=== PATIENT | female | born 1990 | race Caucasian/White ===

== ENCOUNTER 2025-09-12 12:57 | Outpatient (AMB) | payer OTHER, SELFPAY ==
--- NOTE | 2025-09-12 13:10 | MHC.PC.OV ---
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 Transferring care from [facility]. Medical records have been requested and have not received. Director Targeted Marketing Required: No Utilities Service Investigator: Not Required per policy Accompanied by: Self / Same As Patient Allergies No Known Allergies Allergy (Verified 09/12/25 13:17) Medication List - Last Reconciled 09/12/25 by Mauricio Kumar MD No Known Home Meds Tobacco use date assessed: 09/12/25 Dental Screening Dental Screen Date: 09/12/25 Did you have a dental visit in the last 12 months?: Yes Did you have a dental problem in the last 6 months where you did not have access to dental care?: No Was dental information given to patient?: Patient has dentist HPI HPI Comments History of Present Illness Details The patient is a 35-year-old female presenting to establish primary care. The patient has a history of anorexia and is considering an outpatient eating disorder program. She requires a medical assessment form to be completed for intake and has recently started with a therapist. Past medical history is notable for a rash over the summer, which was diagnosed at an urgent care as ringworm and resolved with a cream. The patient had an IUD placed in 2022 but does not currently have an [employer] GRADER. She declines a referral as she is moving back to [place] soon. The patient is a former smoker, having smoked through most of her 20s and quit about a year and a half ago. She denies excessive alcohol use. Family history is significant for pancreatic cancer in two of her father's siblings. She denies any known family history of colon cancer. The patient is up-to-date on her tetanus immunization, received in June or July of this year. She received COVID-19 vaccines in 2021 but not the most recent one. She has never had a flu vaccine and declines it today but may get it at a pharmacy. 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 1. Little interest or pleasure in doing things: not at all 2. Feeling down, depressed, or hopeless: not at all 3. Trouble falling or staying asleep, or sleeping too much: not at all 4. Feeling tired or having little energy: not at all 5. Poor appetite or overeating: not at all 6. Feeling bad about yourself - or that you are a failure or have let yourself or your family down: not at all 7. Trouble concentrating on things, such as reading the newspaper or watching television: not at all 8. Moving or speaking so slowly that other people could have noticed. Or the opposite - being so fidgety or restless that you have been moving around a lot more than usual: not at all 9. Thoughts that you would be better off or of hurting yourself in some way: not at all Total score: 0 Depression Screening Interpretation: Negative Depression Screening Done: Yes Source: Developed by Drs. Walter Desir, Carla Doe, Artis Wild and colleagues, with an educational domingo from [employer]. Thrive Questionnaire Date Thrive assessed: 09/12/25 I am a: Patient What is your living situation today?: I have a steady place to live Within the past 12 months, did the food you bought not last and you didn't have the money to get more?: Never true Within the past 12 months, did you worry whether your food would run out before you got money to buy more?: Never true Do you have trouble paying for medicines?: No Do you have trouble getting transportation to medical appointments?: No Do you have trouble paying your heating and electricity bill?: No Do you have trouble taking care of your child, family member or friend?: No Do you have trouble with day-to-day activities such as bathing, preparing meals, shopping, managing finances, etc.?: No Are you currently unemployed and looking for a job?: No Are you interested in more education?: No Please select the resources that you would like help with: None Currently or been in a relationship where the following occur: No concerns reported THRIVE Score: 0 AUDIT C Alcohol Use Questionnaire (AUDIT-C) 1. How often do you have a drink containing alcohol?: 4 or more times a week 2. How many drinks containing alcohol do you have on a typical day when you are drinking?: 1 or 2 3. How often do you have six or more drinks on one occasion?: Never Total Score: 4 VIKY-7 AMB Questionnaire VIKY-7 Date VIKY - 7 assessed: 09/12/25 Feeling nervous, anxious, or on edge: 0 = Not at all Not being able to stop or control worryin = Not at all Worrying too much about different things: 0 = Not at all Trouble relaxin = Not at all Being so restless that it is hard to sit still: 0 = Not at all Becoming easily annoyed or irritable: 0 = Not at all Feeling afraid as if something awful might happen: 0 = Not at all Total VIKY-7 score (0-4 normal; 5-9 mild; 10-14 moderate; 15-21 severe): 0 Source: Developed by Drs. Walter Desir, Carla Doe, Artis Wild and colleagues, with an educational domingo from [employer]. Review of Systems Const Details: Positives besides what was mentioned in HPI are in BOLD Constitutional: No Weight Change, No Fever, No Chills, No Night Sweats, No Fatigue, No Malaise ENT/Mouth: No Hearing Changes, No Ear Pain, No Nasal Congestion, No Sinus Pain, No Hoarseness, No sore throat, No Rhinorrhea, No Swallowing Difficulty Eyes: No Eye Pain, No Swelling, No Redness, No Foreign Body, No Discharge, No Vision Changes Cardiovascular: No Chest Pain, No SOB, No PND, No Dyspnea on Exertion, No Orthopnea, No Claudication, No Edema, No Palpitations Respiratory: No Cough, No Sputum, No Wheezing, No Smoke Exposure, No Dyspnea Gastrointestinal: No Nausea, No Vomiting, No Diarrhea, No Constipation, No Pain, No Heartburn, No Anorexia, No Dysphagia, No Hematochezia, No Melena, No Flatulence, No Jaundice Genitourinary: No Dysmenorrhea, No DUB, No Dyspareunia, No Dysuria, No Urinary Frequency, No Hematuria, No Urinary Incontinence, No Urgency, No Flank Pain, No Urinary Flow Changes, No Hesitancy Musculoskeletal: No Arthralgias, No Myalgias, No Joint Swelling, No Joint Stiffness, No Back Pain, No Neck Pain, No Injury History Skin: No Skin Lesions, No Pruritis, No Hair Changes, No Breast/Skin Changes, No Nipple Discharge Neuro: No Weakness, No Numbness, No Paresthesias, No Loss of Consciousness, No Syncope, No Dizziness, No Headache, No Coordination Changes, No Recent Falls Psych: No Anxiety/Panic, No Depression, No Insomnia, No Personality Changes, No Delusions, No Rumination, No SI/HI/AH/VH, No Social Issues, No Memory Changes, No Violence/Abuse Hx., No Eating Concerns Heme/Lymph: No Bruising, No Bleeding, No Transfusions History, No Lymphadenopathy Endocrine: No Polyuria, No Polydipsia, No Temperature Intolerance Physical exam (Primary Care) Vital Signs: Last Vital Signs Temp 97.1 F 09/12/25 13:12 Pulse 95 09/12/25 13:12 BP 130/70 09/12/25 13:12 Pulse Ox 97 09/12/25 13:12 Oxygen Delivery Method Room Air 09/12/25 13:12 BMI result Body Mass Index 17.5 Tobacco/Smoking Status: Tobacco use Status Tobacco use date assessed 09/12/25 09/12/25 13:21 Patient Tobacco Use Status Former Tobacco user (2023) 09/12/25 13:21 Tobacco use type Cigarette 09/12/25 13:21 e-Cigarette/Vaping Use Currently Using 09/12/25 13:21 PHQ-9: PHQ-9 Score PHQ-9: Total score 0 09/12/25 13:21 Depression Screening Interpretation: Negative Thrive Assessment: Date of Thrive Assessment Date Thrive assessed 09/12/25 09/12/25 13:21 Currently or been in a relationship where the following occur: No concerns reported Const Other: Pertinent findings are in BOLD GENERAL APPEARANCE NAD, activity normal for age, well developed/ well nourished, no cyanosis, pallor, or diaphoresis. EYES lids/conjunctiva normal. EARS/NOSE/THROAT Mucous membranes moist, nares normal, lips/teeth normal uvula midline without oral pharyngeal erythema, exudate or swelling TMs normal bilaterally. No lymphangitis/lymphedema. HEAD/NECK normocephalic atraumatic, no facial trauma, neck is supple. RESPIRATORY respiratory effort normal, speaks in full sentences, no tripod position, no accessory muscle use. Lungs clear to auscultation without rhonchi, wheezes, rales CARDIAC Regular rate and rhythm, no edema. ABDOMINAL Soft, ND/NT. No evidence of fluid wave. No pulsatile masses on exam, rebound tenderness, Ramirez sign or pain over Mcburney's point. MUSCLES/EXTREMITIES No abnormal range of motion, no swelling. SKIN Warm, pink and dry. No rashes, dermatoses, petechiae or lesions. NEUROLOGICAL Speech is clear and appropriate. Normal level of consciousness. Gait and coordination are normal. 5/5 strength in all extremities. PSYCH Normal mood and affect. Judgement/competence is appropriate Coding Level of Care Code New Pt Level 4 (11300) New Pt Prev Care 18-39yr(96401 Diagnoses Healthcare maintenance Z00.00 Anorexia R63.0 Time Spent (min) 30 Assessment & Plan Assessment & Plan (1) Healthcare maintenance: Code(s): Z00.00 - Encounter for general adult medical examination without abnormal findings Category: Medical Plan: CBC, CMP, Lipid panel, A1C, TSH w T4, vit D. Ordered today. Shingles 2 doses when >50 yo. At 50. COVID: two doses. Completed. Tdap: Last shot in June 2025. Pneumococcal: >50 yo. 18-49 with CKD, lung disease, weakened immune system, Heart disease, DM, cochlear implant. Flu vaccine: Retail pharmacy. Colonoscopy: 45-75. At 45. AAA: 65 -75. At 65. CT lun - 80. At 50. HPV: Will follow in [place]. HIV: Ordered. HCV: Ordered. Dexa: At 65. Mammogram: At 40. (2) Anorexia: Code(s): R63.0 - Anorexia Category: Medical Plan: - Will complete a medical assessment form for a potential outpatient eating disorder program once the patient provides it. - Noted that the patient is engaged in therapy, which is encouraged. Plan I introduced myself as the patient's new primary care physician as she is establishing care. We discussed her history of anorexia, and I agreed to fill out a medical assessment form for an outpatient program once she provides it. I informed the patient that I would be ordering a comprehensive set of baseline labs to assess her overall health, including screenings for Hepatitis C and HIV, and she consented. I advised her to have the blood drawn at the [facility] lab and that fasting was not necessary. We reviewed her vaccination history; her tetanus is up to date, and I recommended the influenza vaccine, which she can get at a pharmacy. I also provided anticipatory guidance regarding colon cancer screening at age 45. Given her impending move, we agreed that a referral to a local [employer] GR[employer]ER was not necessary at this time. I instructed her on how to set up the patient portal for communication and access to lab results. Orders: Orders Comprehensive Met. Panel Today Z00.00 - Encounter for general adult medical examination without abnormal findings Hemoglobin A1c Today Z00.00 - Encounter for general adult medical examination without abnormal findings Hepatitis C Antibody Reflex Today Z00.00 - Encounter for general adult medical examination without abnormal findings Vitamin D 25-OH Total Today Z00.00 - Encounter for general adult medical examination without abnormal findings UA and rflx microscopic Today Z00.00 - Encounter for general adult medical examination without abnormal findings Complete Blood Count no Diff Today Z00.00 - Encounter for general adult medical examination without abnormal findings HIV Ab/Ag Today Z00.00 - Encounter for general adult medical examination without abnormal findings IRON PROFILE Today Z00.00 - Encounter for general adult medical examination without abnormal findings Lipid Panel Today Z00.00 - Encounter for general adult medical examination without abnormal findings Vitamin B12 and Folate Today D64.9 - Anemia, unspecified, Z00.00 - Encounter for general adult medical examination without abnormal findings TSH reflex Free T4 Today Z00.00 - Encounter for general adult medical examination without abnormal findings
[2025-09-12 13:12] VITALS: BP 130/70; PULSE 95; TEMP 36.2; O2SAT 97; BMI 17.5
--- OUTSIDE RECORDS SUMMARY | 2025-09-12 15:49 | XMS_ITS | Clinical Summary ---
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 Not on collette e 05/29/2025 Are you concerned about learning? Not on file 05/29/2025 No 05/29/2025 No 05/29/2025 Digital Access Answer Date Recorded No 05/29/2025 No 05/29/2025 Reliable internet access at home? Not on file 05/29/2025 Device with a working camera? Not on file Comments Unknown Sex and Gender Information Value Date Recorded Sex Assigned at Not on file Legal Sex Female 8:59 PM EDT Gender Identity Not on file Sexual Orientation Not on file Last Filed Vital Signs Vital Sign Reading Time Taken Comments Blood Pressure 118/76 10/09/2014 9:50 AM EST Pulse 114 10/09/2014 9:50 AM EST Temperature - - Respiratory Rate - - Oxygen Saturation - - Inhaled Oxygen Concentration - - Weight 60.3 kg (133 lb) 10/09/2014 9:50 AM EST Height 163.6 cm (5' 4.4 ) 10/09/2014 9:50 AM EST Body Mass Index 22.55 10/09/2014 9:50 AM EST Plan of Treatment Upcoming Encounters Date Type Department Care Team (Late st Contact Info) Description 11/08/2025 2:00 PM EST Office Visit [facility] [address] [place] [address] Kris Tobar, DO [address] [facility], [address] [place] [address] [email or web address] Health Maintenance Due Date Last Done Comments DEPRESSION SCREENING 2004 SMOKING Hx and SMOKELESS TOBACCO SCREENING 2005 HEPATITIS C SCREENING 2010 HIV ONE-TIME SCREENING (18-6 5 YEARS) 2010 PAP SMEAR 2013 Adult Td,Tdap Booster 02/18/2019 02/18/2009 , 04/22/2004 INFLUENZA VACCINE (#1) 2025 COVID-19 VACCINE (2024-2 6 season) 2025 HIB VACCINES Completed 10/19/1993, 01/27/1993, 1992 MENINGOCOCCAL VACCINES (ACWY) Completed 02/18/2009 HEPATITIS A VACCINES Aged Out No long er eligible based on patient's age to complete this topic MENINGOCOCCAL VACCINES (B) Aged Out N o longer eligible based on patient's age to complete this topic PNEUMOCOCCAL VACCINES (0-49 years) Aged Out No longer eligible b ased on patient's age to complete this topic Medical Devices Not on file Insurance [facility] NON NSPG PCP [facility] [employer] CONNECTORCARE [facility] NON NSPG PCP [employer] CONNECTORCARE [employer] [place] NON [place] PCP SILVER CLARITY CONNECTORCARE [facility] NON NSPG PCP SILVER CLARITY CONNECTORCARE [employer] NON NSPG PCP SILVER CLARITY CONNECTORCARE [facility] NON NSPG [facility]CP [facility] Care Teams Telegraph Printer Mechanic Relationship Specialty Start Date End Date Lotus Sigala MD [address] [place] [id number] PCP - General 05/29/25 Additional Source Comments The information contained in this document represents components of the legal health record. It is not the complete legal health record.Located Within [facility]
== END 2025-09-12 13:39 | disposition home or self-care (01) ==
LOC: HO.HMCH 12:57
PROVIDERS: PCP Internal Medicine; Visit Provider Internal Medicine
DX: Z00.00 Encounter for general adult medical examination without abnormal findings (principal); R63.0 Anorexia

== ENCOUNTER 2025-09-12 12:57 | Outpatient (REF) | payer OTHER, SELFPAY ==
[2025-09-12 14:16] LABS: Hematocrit 42.8 % (37.0-47.0); Hemoglobin 13.7 g/dl (12.0-16.0); Mean Corpuscular HGB Conc 32.0 g/dl (31.0-35.0); Mean Corpuscular Hemoglobin 32.6 pg (27.0-33.0); Mean Corpuscular Volume 101.9 fL (80.0-98.0); NRBC Abs Auto 0.000 X10*3/uL (0.0-0.012); NRBC Pct Auto 0.0 /100WBC (0.0-0.2); Platelet Count 339 X10*3/uL (160-400); Red Blood Count 4.20 X10*6/uL (4.20-5.50); White Blood Count 7.1 X10*3/uL (4.8-10.8)
[2025-09-12 14:49] LABS: Appearance Urine Clear; Glucose Urine UA Negative (Negative); PH 8.5 (5.0-9.0); Specific Gravity - Urine 1.010 (1.005-1.025); UMIC TRIGGER UA YES
[2025-09-12 14:50] LABS: Alanine Aminotransferase 61 U/L (0-31); Albumin Level 5.5 g/dL (3.5-5.0); Alkaline Phosphatase 66 U/L (39-117); Anion Gap 13 (12-20); Aspartate Amino Transferase 51 U/L (5-31); Blood Urea Nitrogen 7 mg/dL (9-16); Calcium 10.4 mg/dL (8.4-10.2); Carbon Dioxide 30 mmol/L (22-29); Chloride 103 mmol/L (96-108); Cholesterol 204 mg/dL (<200); Estimated Glomerular Filt Rate > 60; HDL Cholesterol 80 mg/dL (>40); Iron 115 mcg/dL (30-160); Percent Iron Saturation 30 % (15-50); Potassium 3.8 mmol/L (3.3-5.1); Sodium 142 mmol/L (135-145); Total Iron Binding Capacity 379 mcg/dL (228-428); Total Protein 7.8 g/dL (6.5-8.0); Triglycerides 97 mg/dL (<150); Unsaturated Iron Binding 264 ug/dL
[2025-09-12 15:21] LABS: Folate 8.5 ng/mL (> or = 4.0); Vitamin B12 218 pg/mL (200-900)
[2025-09-13 05:06] LABS: HIV Num 1 0.06 S/CO (0.00-0.99); ~HepC Num1 0.10 S/CO (0.00-0.79); ~Hepatitis C Antibody Nonreactive (Nonreactive)
== END 2025-09-12 12:58 | disposition home or self-care (01) ==
LOC: HO.LAB 12:57
PROVIDERS: PCP Internal Medicine; Visit Provider Internal Medicine
DX: Z00.00 Encounter for general adult medical examination without abnormal findings (principal); D64.9 Anemia, unspecified; R63.0 Anorexia
CPT/HCPCS: 36415; 80053; 80061; 81001; 82306; 82607; 82746; 83036; 83540; 84443; 85027; 86803; 87389

== ENCOUNTER 2025-10-23 16:27 | Outpatient (AMB) | payer OTHER, SELFPAY ==
[2025-10-23 16:33] VITALS: BP 126/80; PULSE 81; RESP 18; O2SAT 97; BMI 19.8
--- NOTE | 2025-10-23 16:33 | A.OFFPC_ITS ---
Vital Signs 10/23/25 16:33 Height 5 ft 4.76 in Weight 118 lb BMI 19.8 BP 126/80 Blood Pressure Location Lt brachial Position Sitting Respiration 18 Pulse 81 Pulse Source Pulse Oximeter Temp Source Temporal Artery Scan Pulse Oximetry (%) 97 Oxygen Delivery Method Room Air Intake Visit Reasons: follow up labs Accompanied by: Self / Same As Patient Allergies No Known Allergies Allergy (Verified 10/23/25 16:34) Medication List - Last Reconciled 10/23/25 by Mauricio Kumar MD folic acid 1 mg PO DAILY mecobalamin (vitamin B12) 1,000 mcg PO DAILY Tobacco use date assessed: 10/23/25 Dental Screening Dental Screen Date: 10/23/25 Did you have a dental visit in the last 12 months?: Yes Did you have a dental problem in the last 6 months where you did not have access to dental care?: No Was dental information given to patient?: Patient has dentist HPI HPI Comments History of Present Illness Details The patient is a 35 year old female with PMH of anorexia, elevated liver enzymes presenting for a follow-up on abnormal lab results showing elevated liver enzymes. She has a history of not eating much, but reports she has been eating more recently and has gained 14 pounds, from 104 pounds to her current 118 pounds. Her lab results showed elevated liver enzymes (AST and ALT) and an elevated MCV of 102, which may suggest a vitamin B12 or folic acid deficiency. She reports drinking approximately two ciders per day, which is about 14 drinks per week, and states this is consistent without days of heavier drinking. She has been taking a prescribed vitamin B12 supplement. The patient is moving to [place] on November 14 and will establish care with a new PCP there. She was unable to schedule an appointment with a specialist before her move due to a lack of availability. 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 Cognitive needs: No Hearing needs: No Vision needs: Yes (Glasses/Contacts) Questionnaire Thrive Questionnaire Date Thrive assessed: 10/23/25 I am a: Patient What is your living situation today?: I have a steady place to live Within the past 12 months, did the food you bought not last and you didn't have the money to get more?: Never true Within the past 12 months, did you worry whether your food would run out before you got money to buy more?: Never true Do you have trouble paying for medicines?: No Do you have trouble getting transportation to medical appointments?: No Do you have trouble paying your heating and electricity bill?: No Do you have trouble taking care of your child, family member or friend?: No Do you have trouble with day-to-day activities such as bathing, preparing meals, shopping, managing finances, etc.?: No Are you currently unemployed and looking for a job?: No Are you interested in more education?: No Please select the resources that you would like help with: None Currently or been in a relationship where the following occur: No concerns reported THRIVE Score: 0 VIKY-7 AMB Questionnaire VIKY-7 Date VIKY - 7 assessed: 09/12/25 Source: Developed by Drs. Walter Desir, Carla Doe, Artis Wild and colleagues, with an educational domingo from [employer]. Review of Systems Const Details: As per HPI. Physical exam (Primary Care) Vital Signs: Last Vital Signs Pulse 81 10/23/25 16:33 Resp 18 10/23/25 16:33 BP 126/80 10/23/25 16:33 Pulse Ox 97 10/23/25 16:33 Oxygen Delivery Method Room Air 10/23/25 16:33 BMI result Body Mass Index 19.8 Tobacco/Smoking Status: Tobacco use Status Tobacco use date assessed 10/23/25 10/23/25 16:35 Patient Tobacco Use Status Former Tobacco user 10/23/25 16:35 Tobacco use type Cigarette 10/23/25 16:35 e-Cigarette/Vaping Use Currently Using 10/23/25 16:35 Thrive Assessment: Date of Thrive Assessment Date Thrive assessed 10/23/25 10/23/25 16:35 Currently or been in a relationship where the following occur: No concerns reported Const Other: Pertinent findings are in BOLD GENERAL APPEARANCE NAD, activity normal for age, well developed/ well nourished, no cyanosis, pallor, or diaphoresis. EYES lids/conjunctiva normal. EARS/NOSE/THROAT Mucous membranes moist, nares normal, lips/teeth normal uvula midline without oral pharyngeal erythema, exudate or swelling TMs normal bilaterally. No lymphangitis/lymphedema. HEAD/NECK normocephalic atraumatic, no facial trauma, neck is supple. RESPIRATORY respiratory effort normal, speaks in full sentences, no tripod position, no accessory muscle use. Lungs clear to auscultation without rhonchi, wheezes, rales CARDIAC Regular rate and rhythm, no edema. ABDOMINAL Soft, ND/NT. No evidence of fluid wave. No pulsatile masses on exam, rebound tenderness, Ramirez sign or pain over Mcburney's point. MUSCLES/EXTREMITIES No abnormal range of motion, no swelling. SKIN Warm, pink and dry. No rashes, dermatoses, petechiae or lesions. NEUROLOGICAL Speech is clear and appropriate. Normal level of consciousness. Gait and coordination are normal. 5/5 strength in all extremities. PSYCH Normal mood and affect. Judgement/competence is appropriate Coding Level of Care Code Tele Est Pt Level 3 (92743) Diagnoses Elevated liver enzymes R74.8 Macrocytosis D75.89 Time Spent (min) 20 Assessment & Plan Assessment & Plan (1) Elevated liver enzymes: Code(s): R74.8 - Abnormal levels of other serum enzymes Category: Medical Plan: - The elevated liver enzymes (AST and ALT) are likely multifactorial, potentially related to daily alcohol consumption, nutritional status, and low body weight. - Recommended reducing alcohol intake significantly to no more than one drink three times per week, or abstaining completely, to see if liver enzymes normalize. - A specialist referral is not immediately necessary. - The patient will follow up with a new primary care provider in [place] after her move to repeat labs and monitor her liver function. (2) Macrocytosis: Code(s): D75.89 - Other specified diseases of blood and blood-forming organs Category: Medical Plan: - The patient has an elevated MCV of 102, which suggests a possible vitamin B12 or folic acid deficiency, potentially related to alcohol consumption and diet. - The patient reports she is already taking a prescribed vitamin B12 supplement. - Folic acid will be prescribed to address potential deficiency. Plan I discussed the patient's recent lab results, which showed elevated liver enzymes (AST/ALT) and an elevated MCV of 102. I explained that these findings could be related to her daily alcohol consumption, nutritional status, and low body weight. I recommended she reduce her alcohol intake to no more than one drink three times per week, or ideally, to stop drinking altogether. I prescribed folic acid due to the high MCV and noted that she is already taking her prescribed vitamin B12. I acknowledged her recent weight gain of 14 pounds as a positive step. As she is moving to [place] on November 14, I advised her that no immediate repeat labs are necessary here; she should instead establish care with a new PCP there to have her liver enzymes rechecked. I informed her that a specialist visit is not needed at this time. Medications: New folic acid 1 mg PO DAILY 60 tabs 3RF
--- OUTSIDE RECORDS SUMMARY | 2025-10-24 00:52 | XMS_ITS | Clinical Summary ---
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 Name Role Phone Lotus Sigala MD Primary Care Provider [phone] Family History Medical History Relation Comments Cancer [...] Description 11/08/2025 2:00 PM EST [facility] [address] [place] [address] Kris Tobar, DO [address] [facility], [address] [place] [id number] [email or web address] Health Maintenance Due Date Last Done [...] topic Medical Devices Not on file Insurance [facility] NON [facility] PCP [employer] [facility]G PCP [employer] NON NSPG PCP S[employer] [facility] NON NSPG PCP [employer] NON NSPG PCP [facility] NON NSPG [facility]CP [facility] Care Teams Practical Nursing Teacher Relationship Specialty Start Date End Date Lotus Sigala MD [address] [place] [id number] PCP - General 05/29/25 Additional Source Comments The information contained in this document represents components of the legal health record. It is not the complete legal health record.[facility]
== END 2025-10-23 16:56 | disposition home or self-care (01) ==
LOC: HO.HMCH 16:28
PROVIDERS: PCP Internal Medicine; Visit Provider Internal Medicine
DX: R74.8 Abnormal levels of other serum enzymes (principal); D75.89 Other specified diseases of blood and blood-forming organs